=== PATIENT | male | born 1945 | race Caucasian/White ===

== ENCOUNTER → 2023-04-24 13:12 | Outpatient (CLI) | payer MEDICARE, SELFPAY ==
--- NOTE | ~2023-04-24 | MR_ITS ---
EXAMINATION: MR knee LT wo con DATE: 04/24/2023 13:47 INDICATION: Left knee pain TECHNIQUE: Magnetic resonance imaging (MRI) of the left knee was performed without intravenous contra st. Sequences included coronal PD-weighted FSE, coronal PD-weighted FS FSE, sagittal T2-weighted FSE , sagittal PD-weighted FS FSE and axial PD weighted fat saturated FSE. COMPARISON: None. FINDINGS: Medial compartment: Normal variant posterior meniscomeniscal ligament extending between the posterior horns of the medial and lateral menisci. Tiny vertical tear along the innermost free edge of the medial meniscal body. P artial-thickness chondral ulceration and fissuring involving approximately 50% the cartilage thicknes s at the anterior to central weightbearing medial femoral condyle. Lateral compartment: Full or near full-thickness radial tear at the junction of the anterior horn and body of the lateral meniscus. This can be seen on axial series 3, image 19. In addition to the transverse meniscal menisc al ligament there is a normal meniscal femoral ligament of Mclean which extends anterior to the pos terior cruciate ligament. Articular cartilage is normal. Patellofemoral compartment: Partial-thickness chondral fissuring at the inferior half of the medial patellar facet. Additional sh allow fissuring at the central aspect of the patellar apical ridge. Small deep chondral fissure at th e inferolateral aspect of the medial trochlea. Ligaments and tendons: Complete tear of the anterior cruciate ligament.. Posterior cruciate ligament is normal. The fibular collateral ligament complex is normal. Claudine-Stieda lesion with small osteophyte at the femoral origin of the otherwise normal-appearing medial collateral ligament consistent with sequela of chroni c sprain. Small enthesophytes along the anterior margin of the patella and additional small enthesopa thic ossicles at the distal patellar tendon. Mild quadriceps and patellar tendinopathy without tear. The visualized medial and lateral hamstring tendons as well as the iliotibial band are normal. Fluid: Small left knee joint effusion. Mild synovitis and suprapatellar plical band at the apical ridge. No loose osteochondral bodies identified. Small Durham's cyst. Osseous/other: Small intraosseous ganglion cyst and surrounding edema-like marrow signal change arising from the int ercondylar footplate of the anterior cruciate ligament likely related to the ligament tear. Bone charles ow signal is otherwise unremarkable. No fracture or pathologic marrow replacing process. 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 There is scarring at the medial and lateral sides of Hoffa's fat pad suggesting prior art hroscopy. Correlate with surgical history. IMPRESSION: 1. Complete tear of the anterior cruciate ligament. 2. Radial tear at the junction of the anterior horn and body of the lateral meniscus. 3. Tiny vertical tear along the innermost free edge of the medial meniscal body. 4. 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 5. Claudine-Stieda lesion with enthesophyte at the proximal medial collateral ligament likely seque la of chronic sprain. 6. Mild patellar tendinopathy and mild distal quadriceps enthesopathy. 7. Small left knee joint effusion and small Durham's cyst. 8. 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 Reviewed, dictated and finalized at location A. IMPRESSION: 1. Complete tear of the anterior cruciate ligament. 2. Radial tear at the junction of the anterior horn and body of the lateral men iscus. 3. Tiny vertical tear manish
== END ==
PROVIDERS: PCP Internal Medicine; Visit Provider Orthopaedic Surgery
DX: S83.512A Sprain of anterior cruciate ligament of left knee, initial encounter (principal); X58.XXXA Exposure to other specified factors, initial encounter; S83.282A Other tear of lateral meniscus, current injury, left knee, initial encounter; M17.12 Unilateral primary osteoarthritis, left knee; M25.462 Effusion, left knee
CPT/HCPCS: 73721